=== PATIENT | female | born 1990 | race Caucasian/White ===

== ENCOUNTER → 2016-07-03 | Outpatient (REF) | payer BC | LOC: M SFHCWAGY 10:19 | PROVIDERS: ATTEND Nurse Practitioner Women's Health | DX: Z12.4 Encounter for screening for malignant neoplasm of cervix (principal) ==

== ENCOUNTER → 2019-08-01 | Outpatient (REF) | payer OTHER, MEDICAID ==
[2019-08-01 14:04] LABS: HEMATOCRIT 37.9 % (36.0-47.0); HEMOGLOBIN 12.8 g/dl (12.0-15.5); MEAN CORPUSCULAR HEMOGLOBIN 29.4 pg (27.0-33.0); MEAN CORPUSCULAR HGB CONC 33.8 g/dl (32.0-36.5); MEAN CORPUSCULAR VOLUME 86.9 fl (80.0-96.0); PLATELET COUNT, AUTOMATED 287 10^3/uL (150-450); RED BLOOD COUNT 4.36 10^6/uL (4.00-5.40); WHITE BLOOD COUNT 10.6 10^3/uL (4.0-10.0)
[2019-08-01 14:54] LABS: HEPATITIS B SURFACE ANTIGEN NEGATIVE (NEGATIVE); HEPATITIS C VIRUS ABY INDEX 0.1 INDEX (<0.8); HIV 1&2 SCREEN CENTAUR NEGATIVE (NEGATIVE); RUBELLA IgG QUALITATIVE IMMUNE (IMMUNE)
[2019-08-01 15:54] LABS: CHLAMYDIA DNA AMPLIFICATION NEGATIVE (NEGATIVE); GC DNA AMPLIFICATION NEGATIVE (NEGATIVE)
== END ==
LOC: M PLALAB 11:49
PROVIDERS: ATTEND Advanced Practice Midwife
DX: Z34.01 Encounter for supervision of normal first pregnancy, first trimester (principal)

== ENCOUNTER → 2019-08-08 | Outpatient (CLI) | payer OTHER ==
--- NOTE | 2019-08-08 16:50 | REP ---
REASON: anatomy. PRIORS: None. Multiple ultrasonographic images of the gravid uterus show a single living intrauterine gestation in the transverse head to maternal right position. Doppler interrogation of the heart shows a heart rate of 150 beats per minute. The placenta is anterior and not low lying. The cervix measures 3.6 cm in length and is closed. The subjective amniotic fluid volume is within normal limits. Evaluation of the maternal adnexal spaces showed no abnormalities. BPD 3.9 cm = 18 weeks 0 days HC 15.7 cm = 18 weeks 4 days AC 13.4 cm = 18 weeks 6 days FL 2.8 cm = 18 weeks 4 days The estimated weight is 253 grams, which is at the 39th percentile for an 18 week 6 day gestational age. anatomical structures found to be within normal limits are as follows: Thalami, cavum septum pellucidum, cerebellum, cisterna magna, cerebral ventricles, spine, kidneys, stomach, upper and lower extremities, upper lip, and cord insertion. Structures suboptimally visualized: Four-chamber heart, right and left ventricular outflow tracts, three-vessel umbilical cord, and urinary bladder. IMPRESSION: Single living intrauterine gestation, as described above, with an estimated gestational age of 18 weeks 3 days via composite criteria and an estimated date of delivery of 01/06/2020 by today's exam. No anomalies were detected, however, I recommend a followup examination to better visualize those structures suboptimally visualized today as described above.
== END ==
LOC: M WHC 09:51
PROVIDERS: ATTEND Advanced Practice Midwife
DX: O32.2XX0 Maternal care for transverse and oblique lie, not applicable or unspecified (principal); Z36.89 Encounter for other specified antenatal screening; Z3A.18 18 weeks gestation of pregnancy

== ENCOUNTER → 2019-09-22 | Outpatient (CLI) | payer OTHER ==
--- NOTE | 2019-09-23 01:58 | REP ---
REASON: Followup anatomy. The prior examination failed to optimally visualize four-chamber heart and right and left ventricular outflow tracts. Multiple ultrasonographic images of the gravid uterus show a single living intrauterine gestation in the breech presentation. Doppler interrogation of the heart shows a heart rate of 140 beats per minute. The placenta is anterior and not low lying. The subjective amniotic fluid volume is within normal limits. The cervix measures 3.1 cm in length and is closed. CHART: BPD 6.1 cm = 24 weeks 5 days HC 23.3 cm = 25 weeks 2 days AC 21.2 cm = 25 weeks 5 days FL 4.8 cm = 26 weeks 1 day The estimated weight is 851 grams, which is at the 56th percentile for a 25-week 2-day gestational age. The four-chamber heart and both right and left ventricular outflow tracts were again suboptimally visualized today. IMPRESSION: Single living intrauterine gestation, as described above, with an estimated gestational age of 25 weeks 1 day via composite criteria and an estimated date of delivery of 01/04/2020 by today's exam. anatomical screen is still incomplete, as described above, and followup is recommended.
== END ==
LOC: M WHC 13:49
PROVIDERS: ATTEND Advanced Practice Midwife
DX: Z34.02 Encounter for supervision of normal first pregnancy, second trimester (principal); Z36.2 Encounter for other antenatal screening follow-up; Z3A.25 25 weeks gestation of pregnancy

== ENCOUNTER → 2019-11-06 | Outpatient (CLI) | payer OTHER | LOC: M WHC 10:38 | PROVIDERS: ATTEND Specialist | DX: Z34.02 Encounter for supervision of normal first pregnancy, second trimester (principal); Z3A.32 32 weeks gestation of pregnancy ==

== ENCOUNTER → 2019-12-10 | Outpatient (REF) | payer OTHER, MEDICAID | LOC: M WHC 14:30 | PROVIDERS: ATTEND Advanced Practice Midwife | DX: Z34.80 Encounter for supervision of other normal pregnancy, unspecified trimester (principal); Z3A.00 Weeks of gestation of pregnancy not specified ==

== ENCOUNTER 2020-01-06 06:18 | Inpatient (IN) | payer OTHER ==
[2020-01-06] VITALS (38 sets, daily range): BP systolic 96–179; BP diastolic 55–100
[2020-01-06] MEDS ORDERED: LACTATED RINGER'S 1000 ML IV STA (07:00)
[2020-01-06 07:34] LABS: HEMATOCRIT 37.3 % (36.0-47.0); HEMOGLOBIN 12.9 g/dl (12.0-15.5); MEAN CORPUSCULAR HEMOGLOBIN 29.7 pg (27.0-33.0); MEAN CORPUSCULAR HGB CONC 34.6 g/dl (32.0-36.5); MEAN CORPUSCULAR VOLUME 85.7 fl (80.0-96.0); PLATELET COUNT, AUTOMATED 182 10^3/uL (150-450); RED BLOOD COUNT 4.35 10^6/uL (4.00-5.40); WHITE BLOOD COUNT 13.3 10^3/uL (4.0-10.0)
[2020-01-06] MEDS ORDERED: FENTANYL 2MCG/ML ROPIVACAINE 0.2% IN 0.9% NACL 100ML IVBAG As Ordered ONE (08:10)
[2020-01-06] MEDS: LR 1,000 ML IV SCH ×2 (08:16→16:09)
[2020-01-06] MEDS: FENTANYL/ROPIVACAINE/NACL BAG 100 ML EPIDURAL SCH ×2 (08:51→19:12)
[2020-01-06] MEDS ORDERED: diphenhydrAMINE 50MG/ML VIAL (J1200) IV PRN (10:45)
[2020-01-06] MEDS ORDERED: ONDANSETRON 4MG/2ML VIAL IV PRN (10:45)
[2020-01-06] MEDS ORDERED: NALOXONE INJ 0.4MG/1ML VIAL (J2310 PER 1MG) IV PRN (10:45)
[2020-01-06] MEDS ORDERED: EPIDURAL/PCA KEYS XX PRN (10:45)
[2020-01-06] MEDS ORDERED: EPIDURAL COMMENT XX SCH (10:45)
[2020-01-06] MEDS ORDERED: LACTATED RINGER'S 1000 ML IV PRN (10:45)
[2020-01-06] MEDS ORDERED: ePHEDrine SULFATE 25 MG/5 ML(5MG/ML) SYRINGE IV PRN (10:45)
[2020-01-06] MEDS ORDERED: REFRIGERATOR IV KEYS XX PRN (10:45)
[2020-01-06] MEDS ORDERED: OXYTOCIN 30 UNITS IN 0.9% NaCl 500ML IV BAG (J2590) As Ordered ONE (17:54)
[2020-01-06 20:01] LABS: CORD GAS ABE A -7.9; CORD GAS HCO3 A 22.5 MEQ/L; CORD GAS O2 SAT A 31.1 %; CORD GAS PCO2 A 66.3 mmHg; CORD GAS PH A 7.149 UNITS; CORD GAS PO2 A 18.9 mmHg; CORD GAS SBC A 16.7 MEQ/L; CORD GAS TCO2 A 24.6 MEQ/L
[2020-01-06 20:04] LABS: CORD GAS ABE V -7.6; CORD GAS HCO3 V 19.2 MEQ/L; CORD GAS PCO2 V 43.4 mmHg; CORD GAS PH V 7.264 UNITS; CORD GAS PO2 V 19.7 mmHg; CORD GAS SBC V 17.2 MEQ/L; CORD GAS TCO2 V 20.5 MEQ/L
[2020-01-06] MEDS ORDERED: OXYTOCIN DRIP 30 UNITS in IV 1 EA IV SCH (20:19)
--- NOTE | 2020-01-06 20:24 | DNPDOC ---
[facility] Delivery Note Delivery Note DATE OF DELIVERY: 01/06/2020 TIME OF : 1948 GENDER:, Female. APGARS:7 and 9. WEIGHT:, 3600 grams or 7 pounds 15 ounces. LACERATIONS: 2MLL ANESTHESIA: Epidural. ESTIMATED BLOOD LOSS: 300ml COUNTS: 5 laparotomy sponges accounted for prior to after delivery. DELIVERY NOTE: On 01/06/2020 at 1949, Mrs. Tripp a 29-year-old 1 now para 1, had a spontaneous vaginal delivery of viable female infant, Apgars, 7 and 9 and weight 3600 g or 7 lbs. 15 oz. Head was delivered occiput anterior (OA) . Nuchal cord was manually reduced, followed by delivery of the shoulders and corpus. Infant was handed to mom with a good cry. Cord was clamped times two and was cut by the father of baby under my direction. Placenta was then drained and delivered grossly intact. A premixed bag of 500 mL of normal saline with 30 units of Pitocin was then bolused along with uterine massage until the uterus was firm. On inspection, there was a 2MLL that was infused with 1% lidocaine and repaired with 3-0 Vicryl. On reinspection cervix, vagina, perineum was grossly intact and hemostatic. Mom and baby in recovery on stable condition. The couples decided to remain in daughter, RAMU Phillips MD. Jan 06, 2020 20:24
[2020-01-06] MEDS ORDERED: IBUPROFEN 600MG TAB PO PRN (20:30)
[2020-01-06] MEDS ORDERED: METHYLERGONOVINE MALEATE 0.2 MG TAB PO PRN (20:30)
[2020-01-06] MEDS ORDERED: LIDOCAINE 1% MDV 20ML VIAL INFIL ONE (20:30)
[2020-01-06] MEDS ORDERED: MEASLES,MUMPS,RUBELLA VACCINE INJ (MMR-II) (90707) SC SCH (20:30)
[2020-01-06] MEDS ORDERED: RHOGAM 300 MCG (1500 IU) INJ (J2790) IM SCH (20:30)
[2020-01-06] MEDS ORDERED: ACETAMINOPHEN TAB 650MG DOSE (2X325MG) PO PRN (20:30)
[2020-01-06] MEDS ORDERED: MOM 30ML SUSPENSION UDC PO PRN (20:30)
[2020-01-06] MEDS: IBUPROFEN 800 MG TAB PO PRN (21:19)
[2020-01-06] MEDS: ACETAMINOPHEN 500 MG TAB PO PRN (21:19)
[2020-01-06] MEDS: DOCUSATE SODIUM 100 MG CAP PO SCH (21:53)
[2020-01-06] MEDS: DIBUCAINE 1% OINTMENT 30GM TOP PRN (22:48)
[2020-01-07] MEDS: IBUPROFEN 800 MG TAB PO PRN ×2 (05:00→15:26)
[2020-01-07 06:00] VITALS: BP 134/85
--- NOTE | 2020-01-07 07:43 | IPNPDOC ---
Progress Note Date of Service: Jan 07, 2020 Day#: 1 Progress Note SUBJECT: Doing well without complaints. Ambulating, voiding and pain is well-c ontrolled. Reports minimal lochia. OBJECTIVE: VITAL SIGNS: Within normal limits, afebrile. Alert and oriented times three. Abdomen: Fundus firm at U-2. Soft, NTTP. Ext: neg calf tenderness. ASSESSMENT: day #1 status post normal spontaneous vaginal delivery. Recovering in stable condition. PLAN: 1. Continue routine care 2. Discharge plans for tomorrow VS, I&O, 24H, Fishbone Vital Signs/I&O Vital Signs Date Time Temp Pulse Resp B/P (MAP) Pulse Ox O2 Delivery O2 Flow Rate FiO2 01/07/20 06:00 98.7 60 16 134/85 (101) 98 Room Air I&O- Last 24 Hours up to 6 AM 01/07/20 06:00 Intake Total 1650 ml Output Total 2350 ml Balance -700 ml Laboratory Data 24H LABS Laboratory Tests 2 01/06/20 19:55: Cord Arterial Blood pH 7.149, Cord Arterial Blood PCO2 66.3, Cord Arterial Blood PO2 18.9, Cord Arterial Blood HCO3 22.5, Cord Arterial Blood Total CO2 24.6, Cord Arterial Blood Base Excess -7.9, Cord Arterial Base Excess (Standard 16.7, Cord Arterial Bld Oxygen Saturation 31.1, Cord Venous Blood pH 7.264, Cord Venous Blood PCO2 43.4, Cord Venous Blood PO2 19.7, Cord Venous Blood HCO3 19.2, Cord Venous Blood Total CO2 20.5, Cord Venous Base Excess (Actual) -7.6, Cord Venous Base Excess (Standard) 17.2, Cord Venous Blood Oxygen Saturation 44.0 RAMU HUNTER MD. Jan 07, 2020 07:43
[2020-01-07] MEDS: DOCUSATE SODIUM 100 MG CAP PO SCH ×2 (08:03→20:34)
[2020-01-07] MEDS: PRENATAL VITAMINS CHEWABLE TABLET PO SCH (08:03)
[2020-01-07 18:00] VITALS: BP 129/73
[2020-01-07] MEDS: ACETAMINOPHEN 500 MG TAB PO PRN (20:34)
[2020-01-07] MEDS: DIBUCAINE 1% OINTMENT 30GM TOP PRN (23:30)
[2020-01-08 06:00] VITALS: BP 136/85
[2020-01-08] MEDS: DOCUSATE SODIUM 100 MG CAP PO SCH (08:22)
[2020-01-08] MEDS: PRENATAL VITAMINS CHEWABLE TABLET PO SCH (08:22)
[2020-01-08] MEDS: IBUPROFEN 800 MG TAB PO PRN (08:26)
[2020-01-08] MEDS ORDERED: BOOSTRIX/ADACEL VACCINE (DIPHTH/PERTUSS/ACELL/TETANUS) 0.5ML SYR IM ONE ×2 (09:00)
--- NOTE | 2020-01-13 15:07 | HPE ---
DATE OF ADMISSION: 01/06/2020 Mable is a 29-year-old, 1, para 0 at 40-3/7 weeks gestation, estimated date of confinement (EDC) of 01/03/2020. She presents to labor and delivery today with report of spontaneous rupture of membranes, clear fluid, at 0130 hours. She has continued to leak clear fluid and reports contractions are now every 3 minutes and very uncomfortable. She does report some mild bloody show. The fetus has been active. care was initiated at [facility] and [facility] in the first trimester. course has been uncomplicated. OBSTETRIC HISTORY: Primigravida. OBSTETRIC LABORATORIES: O positive, antibody screen negative, hepatitis C antibody nonreactive, hepatitis B surface antigen negative, HIV nonreactive, Rubella immune, RPR nonreactive, gonorrhea and chlamydia negative, urine culture and sensitivity negative, gestational diabetic screening not performed, GBS negative. PAST MEDICAL HISTORY: Noncontributory. SURGERIES: Hermann tooth extraction. FAMILY HISTORY: Breast cancer, myocardial infarction, rheumatoid arthritis, migraine headache, thyroid disorder. SOCIAL HISTORY: The patient is single. The father of the baby is involved and is at bedside and supportive. She quit smoking with the onset of her . She denies alcohol and drug use. She denies any history of sexually transmitted infections and she denies history of abuse; physical, sexual, and emotional. ALLERGIES: No known drug allergies. Seasonal allergies, dust allergies. MEDICATIONS: - vitamin OBJECTIVE: Temperature 97.8, pulse 70, respirations 18, blood pressure 122/67. She is alert and oriented times three. She does appear uncomfortable with her contractions. heart rate is 150 with moderate variability, positive accelerations, negative decelerations. Contractions are approximately every 2 minutes. Her abdomen is gravid, cephalic presentation with an estimated weight 7 1/2 to 8 pounds. Sterile speculum exam: She appears to be grossly ruptured, clear fluid, there is positive pooling, positive Nitrazine, positive Ferning. Sterile vaginal exam: 3 cm dilated, 90% effaced, -2 station. ASSESSMENT: Intrauterine at 40-3/7 weeks, heart rate category 1, active labor, spontaneous rupture of membranes. PLAN: Admit the patient to labor and delivery. Routine labs. The patient is requesting an epidural for her labor coping. IV fluid bolus has been ordered. Out of bed ad rohan. Clear liquid diet at this time. May consider Pitocin for labor augmentation. She has been verbally consented for emergency surgery and blood products if they are necessary. I do anticipate labor progress and a spontaneous vaginal delivery. MTDD
== END 2020-01-08 10:45 | disposition home or self-care (01) | DRG 560 ==
LOC: M LDO 06:18 → M LDI 07:02 → M OBS 22:06
PROVIDERS: ADMIT Advanced Practice Midwife; ATTEND Obstetrics & Gynecology
PROC: 10E0XZZ Delivery of Products of Conception, External Approach (ICD-10-PCS; principal; 2020-01-06)
PROC: 0KQM0ZZ Repair Perineum Muscle, Open Approach (ICD-10-PCS; 2020-01-06)
DX: O69.81X0 Labor and delivery complicated by cord around neck, without compression, not applicable or unspecified (principal); O70.1 Second degree perineal laceration during delivery; Z37.0 Single live birth; Z3A.40 40 weeks gestation of pregnancy

== ENCOUNTER → 2020-09-16 | Outpatient (REF) | payer OTHER ==
[2020-09-16 17:48] LABS: HEMATOCRIT 38.2 % (36.0-47.0); MEAN CORPUSCULAR HEMOGLOBIN 28.6 pg (27.0-33.0); MEAN CORPUSCULAR HGB CONC 31.4 g/dl (32.0-36.5); MEAN CORPUSCULAR VOLUME 91.2 fl (80.0-96.0); PLATELET COUNT, AUTOMATED 332 10^3/uL (150-450); RED BLOOD COUNT 4.19 10^6/uL (4.00-5.40); WHITE BLOOD COUNT 7.5 10^3/uL (4.0-10.0)
[2020-09-16 18:23] LABS: ALBUMIN 3.6 GM/DL (3.2-5.2); ALT/SGPT 18 U/L (12-78); BILIRUBIN,TOTAL 0.8 MG/DL (0.2-1.0); BLOOD UREA NITROGEN 8 MG/DL (7-18); CALCIUM LEVEL 8.7 MG/DL (8.5-10.1); CARBON DIOXIDE LEVEL 30 MEQ/L (21-32); CHLORIDE LEVEL 105 MEQ/L (98-107); CREATININE FOR GFR 0.75 MG/DL (0.55-1.30); GLOMERULAR FILTRATION RATE > 60.0 (>60); GLUCOSE, FASTING 89 MG/DL (70-100); POTASSIUM SERUM 4.5 MEQ/L (3.5-5.1); SODIUM LEVEL 140 MEQ/L (136-145); THYROID STIMULATING HORMONE 0.824 uIU/ML (0.358-3.740); TOTAL PROTEIN 7.2 GM/DL (6.4-8.2)
== END ==
LOC: M SFHCADAM 11:50
PROVIDERS: ATTEND Family Medicine
DX: E04.9 Nontoxic goiter, unspecified (principal); F90.9 Attention-deficit hyperactivity disorder, unspecified type

== ENCOUNTER → 2020-12-15 | Outpatient (REF) | payer OTHER | LOC: M LAB REF 14:04 | PROVIDERS: ATTEND Physician Assistant | DX: D22.5 Melanocytic nevi of trunk (principal); D49.2 Neoplasm of unspecified behavior of bone, soft tissue, and skin ==

== ENCOUNTER → 2021-09-27 | Outpatient (CLI) | payer OTHER | LOC: M WHC 09:38 | PROVIDERS: ATTEND Specialist | DX: Z36.87 Encounter for antenatal screening for uncertain dates (principal); Z3A.20 20 weeks gestation of pregnancy ==

== ENCOUNTER 2022-02-03 05:59 | Inpatient (IN) | payer OTHER ==
[~2022-02-03] VITALS: Ht 167.6 cm; Wt 72.4 kg
[2022-02-03] VITALS (8 sets, daily range): BP systolic 108–139; BP diastolic 56–81
[2022-02-03] MEDS ORDERED: ceFAZolin SOD 2 GM in IV 1 EA IV ONE (06:10)
[2022-02-03] MEDS ORDERED: LR 1,000 ML IV SCH ×2 (06:10→09:40)
[2022-02-03] MEDS ORDERED: BICITRA 30ML SOLN UDC PO ONE (06:10)
[2022-02-03] MEDS ORDERED: LACTATED RINGER'S 1000 ML IV ONE (06:10)
[2022-02-03] MEDS ORDERED: PRENTAB9 PO (06:11)
[2022-02-03] MEDS ORDERED: ADDE10CA3 PO (06:36)
[2022-02-03 06:44] LABS: HEMATOCRIT 36.7 % (36.0-47.0); HEMOGLOBIN 12.3 g/dl (12.0-15.5); MEAN CORPUSCULAR HEMOGLOBIN 28.9 pg (27.0-33.0); MEAN CORPUSCULAR HGB CONC 33.5 g/dl (32.0-36.5); MEAN CORPUSCULAR VOLUME 86.4 fl (80.0-96.0); PLATELET COUNT, AUTOMATED 273 10^3/uL (150-450); RED BLOOD COUNT 4.25 10^6/uL (4.00-5.40); WHITE BLOOD COUNT 11.1 10^3/uL (4.0-10.0)
[2022-02-03] MEDS ORDERED: OXYTOCIN INJ 10 UNITS/ML VIAL (J2590) As Ordered ONE (07:01)
[2022-02-03] MEDS ORDERED: MORPHINE PRES-FREE INJ 10 MG/10 ML VIAL As Ordered ONE (07:01)
[2022-02-03] MEDS ORDERED: dexameTHASONE 4 MG/ML 1ML VIAL (J1100 PER 1MG) As Ordered ONE (08:56)
[2022-02-03] MEDS ORDERED: ONDANSETRON 4MG 2ML VIAL As Ordered ONE (08:57)
[2022-02-03] MEDS ORDERED: propofoL 200 MG/20 ML VIAL As Ordered ONE (08:58)
[2022-02-03] MEDS: PRENATAL VITAMINS CHEWABLE TABLET PO SCH (09:00)
[2022-02-03] MEDS ORDERED: PHENYLephrine 500MCG 5ML (100MCG/ML) SYRINGE As Ordered ONE (09:12)
[2022-02-03] MEDS ORDERED: KETOROLAC 60MG 2ML VIAL As Ordered ONE (09:21)
[2022-02-03] MEDS ORDERED: OXYTOCIN DRIP 30 UNITS in IV 1 EA IV SCH (09:40)
[2022-02-03] MEDS ORDERED: RHOGAM 300 MCG (1500 IU) INJ (J2790) IM SCH (09:40)
[2022-02-03] MEDS ORDERED: SIMETHICONE 80MG CHEW TAB PO PRN (09:40)
[2022-02-03] MEDS ORDERED: DOCUSATE SODIUM 100MG CAPSULE PO PRN (09:40)
[2022-02-03] MEDS ORDERED: OXYTOCIN 30 UNITS IN 0.9% NaCl 500ML IV BAG (J2590) As Ordered ONE (09:47)
[2022-02-03] MEDS ORDERED: METOCLOPRAMIDE INJ 10MG/2ML VIAL (J2765 PER 1) IV PRN (10:00)
[2022-02-03] MEDS ORDERED: ONDANSETRON 4MG 2ML VIAL IV PRN (10:00)
[2022-02-03] MEDS ORDERED: diphenhydrAMINE 50MG/ML VIAL (J1200) IV PRN (10:00)
[2022-02-03] MEDS ORDERED: **NOTE PATIENT COMMENT** MISC XX SCH (10:00)
[2022-02-03] MEDS ORDERED: oxyCODONE 5MG TAB PO PRN (10:00)
[2022-02-03] MEDS ORDERED: NALOXONE INJ 0.4MG/1ML VIAL (J2310 PER 1MG) IV PRN ×2 (10:00)
[2022-02-03] MEDS ORDERED: fentaNYL 100 MCG/2 ML INJECTION As Ordered ONE (10:04)
[2022-02-03] MEDS: fentaNYL 100 MCG/2 ML INJECTION IV PRN ×4 (10:10→10:32)
[2022-02-03] MEDS: PERCOCET 5MG/325MG TAB PO PRN ×2 (13:26→19:53)
[2022-02-03] MEDS: SLF 3 ML SYR IV SCH ×2 (16:01→18:00)
[2022-02-03] MEDS: KETOROLAC 30 MG/ML 1ML VIAL IV SCH ×2 (16:01→22:08)
[2022-02-04] MEDS: PERCOCET 5MG/325MG TAB PO PRN ×3 (01:19→14:48)
[2022-02-04 02:00] VITALS: BP 111/59
[2022-02-04] MEDS: SLF 3 ML SYR IV SCH (02:00)
[2022-02-04] MEDS: KETOROLAC 30 MG/ML 1ML VIAL IV SCH (03:59)
[2022-02-04 06:00] VITALS: BP 110/54
[2022-02-04 07:55] LABS: HEMATOCRIT 31.9 % (36.0-47.0); HEMOGLOBIN 10.6 g/dl (12.0-15.5); MEAN CORPUSCULAR HEMOGLOBIN 29.5 pg (27.0-33.0); MEAN CORPUSCULAR HGB CONC 33.2 g/dl (32.0-36.5); MEAN CORPUSCULAR VOLUME 88.9 fl (80.0-96.0); PLATELET COUNT, AUTOMATED 271 10^3/uL (150-450); RED BLOOD COUNT 3.59 10^6/uL (4.00-5.40); WHITE BLOOD COUNT 17.2 10^3/uL (4.0-10.0)
[2022-02-04] MEDS: PRENATAL VITAMINS CHEWABLE TABLET PO SCH (08:04)
[2022-02-04 10:00] VITALS: BP 127/69
[2022-02-04] MEDS ORDERED: IBUPROFEN 800 MG TAB PO SCH (12:00)
[2022-02-04 14:00] VITALS: BP 112/68
[2022-02-04] MEDS ORDERED: OXYC1TAB23 PO (14:04)
[2022-02-04] MEDS ORDERED: IBUP80TA PO (14:04)
[2022-02-05] MEDS ORDERED: MEASLES,MUMPS,RUBELLA VACCINE INJ (MMR-II) (90707) SC.IMMUN ONE (09:00)
== END 2022-02-04 19:00 | disposition home or self-care (01) | DRG 540 ==
LOC: M LDI 05:59 → M OBS 11:11
PROVIDERS: ADMIT Specialist; ATTEND Specialist
PROC: 10D00Z1 Extraction of Products of Conception, Low, Open Approach (ICD-10-PCS; principal; 2022-02-03 08:30)
DX: O34.83 Maternal care for other abnormalities of pelvic organs, third trimester (principal); Z3A.39 39 weeks gestation of pregnancy; Z37.0 Single live birth; O99.344 Other mental disorders complicating childbirth; F41.9 Anxiety disorder, unspecified

== ENCOUNTER → 2022-03-23 | Outpatient (REF) | payer OTHER ==
[~2022-03-23] MED LIST: ADDE10CA3 PO; IBUP80TA PO; OXYC1TAB23 PO; PRENTAB9 PO
== END ==
LOC: M WUC 12:28
PROVIDERS: ATTEND Student in an Organized Health Care Education/Training Program
DX: J02.9 Acute pharyngitis, unspecified (principal)

== ENCOUNTER → 2022-05-23 | Outpatient (REF) | payer OTHER ==
[2022-05-23 18:25] LABS: HEMATOCRIT 35.5 % (36.0-47.0); HEMOGLOBIN 11.5 g/dl (12.0-15.5); MEAN CORPUSCULAR HGB CONC 32.4 g/dl (32.0-36.5); MEAN CORPUSCULAR VOLUME 89.6 fl (80.0-96.0); PLATELET COUNT, AUTOMATED 314 10^3/uL (150-450); RED BLOOD COUNT 3.96 10^6/uL (4.00-5.40); WHITE BLOOD COUNT 6.6 10^3/uL (4.0-10.0)
[2022-05-23 18:39] LABS: ALBUMIN 3.5 G/DL (3.2-5.2); ALKALINE PHOSPHATASE 50 U/L (46-116); ALT/SGPT 14 U/L (7.0-40); AST/SGOT 18 U/L (<34); BILIRUBIN,TOTAL 0.7 MG/DL (0.3-1.2); BLOOD UREA NITROGEN 9 MG/DL (9-23); CALCIUM LEVEL 8.5 MG/DL (8.5-10.1); CARBON DIOXIDE LEVEL 28 MMOL/L (20-31); CHLORIDE LEVEL 101 MMOL/L (98-107); CREATININE FOR GFR 0.77 MG/DL (0.55-1.30); FREE T4 1.08 NG/DL (0.89-1.76); GLOMERULAR FILTRATION RATE > 60.0 (>60); GLUCOSE, FASTING 97 MG/DL (60-100); POTASSIUM SERUM 4.2 MMOL/L (3.5-5.1); SODIUM LEVEL 137 MMOL/L (136-145); THYROID STIMULATING HORMONE 2.111 uIU/ML (0.55-4.78); TOTAL PROTEIN 7.1 G/DL (5.7-8.2)
[2022-05-23 18:49] LABS: MAU/CREAT RATIO 16.4 MCG/MG (0.0-30.0)
[2022-05-30 09:10] LABS: AMPHETAMINE, URINE GC/MS >5000 ng/mL (Cutoff=500); CREATININE, URINE 78.7 mg/dL (20.0-300.0); METHAMPHETAMINE, URINE Negative (Cutoff=500)
== END ==
LOC: M SFHCADAM 14:02
PROVIDERS: ATTEND Family Medicine
DX: F90.9 Attention-deficit hyperactivity disorder, unspecified type (principal); E04.9 Nontoxic goiter, unspecified; R60.0 Localized edema; Z79.899 Other long term (current) drug therapy